=== PATIENT | female | born 1935 | race African-American/Black ===

== ENCOUNTER 2016-11-05 10:01 | Inpatient (IN) ==
[2016-10-30 09:11] LABS: Basophils % 0.7 % (0.0-0.8); Eosinophils # 0.2 10*3/uL (0.0-0.87); Hematocrit 36.1 VOL% (35.7-47.0); Hemoglobin 11.3 GM/DL (12.0-16.0); Immature Granulocytes % 0.4 %; Immature Granulocytes Absolute 0.01 #; Lymphocytes # 0.7 10*3/uL (1.4-4.0); Lymphocytes % 25.5 % (21.3-54.2); Mean Corpuscular HGB Conc 31.3 GM/DL (32-36); Mean Corpuscular Hemoglobin 28 PG (27-34); Mean Platelet Volume 9.5 FL (9.6-12.0); Monocytes # 0.2 10*3/uL (0.11-0.8); Monocytes % 8.6 % (1.7-12.7); Neutrophils # 1.6 10*3/uL (1.4-7.4); Neutrophils % 58.8 % (38.7-73.9); Platelet Count 200 T/CUMM (130-400); Red Blood Count 4.01 MC/CUMM (3.8-5.5); Red Cell Distribution Width 15.8 % (9.3-17.3); White Blood Count 2.7 T/CUMM (4-12)
[2016-10-30 09:21] LABS: Apearance,Urine CLEAR (Clear); Bilirubin,Urine Negative (Negative); Blood, Urine Negative (Negative); Glucose,Urine (UA) Negative (Negative); Ketones,Urine Negative (Negative); Mucus,Urine Occasional /LPF (Occasional); Nitrite,Urine Negative (Negative); PT Patient Result 10.6 SECS; Partial Thromboplastin Time 29.9 SECS (0-40); Protein,Urine Negative; Squamous Epithelial Cell,Urine Occasional /HPF (0-10); Urine Color Yellow (Yellow); Urine Specific Gravity 1.015 (1.001-1.035); Urine Urobilinogen < 2.0 EU/DL (0.2-1.0); WBC,Urine <1 /HPF (0-6)
--- NOTE | 2016-10-30 09:23 | EKG Report ---
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
[2016-10-30 09:50] LABS: Albumin 3.9 G/DL (3.4-5.0); Bilirubin,Total 0.4 MG/DL (0.2-1.0); Calcium 9.3 MG/DL (8.5-10.1); Osmolality,Calculated 285.1 MOS/KG (273-304); Total Protein 6.9 G/DL (6.4-8.3)
--- NOTE | 2016-10-30 11:26 | XRay Report ---
XR chest 2V Date: 10/30/2016 8:45 AM History: Respiratory preoperative evaluation Comparison: 03/30/2014 Technique: PA and lateral chest Findings: The heart is normal in size with uncoiling of the aorta. The lungs are clear without unremarkable mediastinum. Degenerative changes are noted with prior cholecystectomy. Impression: No acute cardiopulmonary pathology identified. PROCEDURE INTERPRETED AT [facility] DEPARTMENT OF RADIOLOGY Final Report Signed by: Dr. Mary Avendaño
[~2016-11-05 10:01] MED LIST: CLINDAMYCIN INJ 900 MG in PREMIX 1 EACH IV ONE; VANCOMYCIN INJ 1,000 MG in SODIUM CHLORIDE 0.9% 250 ML IV ONE
[2016-11-05] MEDS: LACTATED RINGERS 1,000 ML IV SCH ×2 (11:00→13:51)
[2016-11-05] MEDS ORDERED: CLINDAMYCIN INJ 50 ML IV ONE (11:06)
[2016-11-05] MEDS ORDERED: VANCOMYCIN 1,000 MG VIAL ONE (11:06)
[2016-11-05] MEDS ORDERED: DIAZEPAM 2 MG TABLET PO ONE (11:43)
[2016-11-05] MEDS ORDERED: PROPOFOL 200 MG/20 ML VIAL IV ONE (12:20)
[2016-11-05] MEDS ORDERED: KETOROLAC 30 MG/1 ML VIAL ONE (12:20)
[2016-11-05] MEDS ORDERED: hydrALAZINE 20 MG/1 ML VIAL ONE (12:20)
[2016-11-05] MEDS ORDERED: ONDANSETRON 4 MG/2 ML VIAL ONE (12:20)
[2016-11-05] MEDS ORDERED: EPINEPHrine 1 MG/ML VIAL ONE (12:25)
[2016-11-05] MEDS ORDERED: BUPIVACAINE 0.5% 50 ML VIAL ONE (12:25)
[2016-11-05] MEDS ORDERED: MORPHINE 10 MG/1 ML VIAL ONE (12:26)
[2016-11-05] MEDS ORDERED: methylPREDNISolone SOD SUC 125 MG/2 ML VIAL ONE (12:26)
[2016-11-05] MEDS ORDERED: TRANEXAMIC ACID 1,000 MG/10 ML VIAL IV ONE (13:13)
[2016-11-05] MEDS ORDERED: diphenhydrAMINE CAP 25 MG CAPSULE PO PRN (15:16)
[2016-11-05] MEDS ORDERED: hydroCHLOROthiazide 25 MG TABLET PO PRN (15:16)
[2016-11-05] MEDS ORDERED: MAGNESIUM HYDROXIDE SUSP 30 ML UDCUP PO PRN (15:16)
[2016-11-05] MEDS ORDERED: ONDANSETRON 4 MG/2 ML VIAL IV PRN ×2 (15:16→15:40)
[2016-11-05] MEDS ORDERED: TEMAZEPAM 7.5 MG CAPSULE PO PRN (15:16)
[2016-11-05] MEDS ORDERED: NALOXONE 0.4 MG/ML VIAL IV PRN (15:16)
[2016-11-05] MEDS ORDERED: MORPHINE PCA 30 MG/30 ML SYRINGE IV SCH (15:30)
[2016-11-05] MEDS ORDERED: LACTATED RINGERS 1,000 ML IV SCH (15:30)
[2016-11-05] MEDS ORDERED: fentaNYL 100 MCG/2 ML VIAL ONE (15:33)
[2016-11-05] MEDS ORDERED: MIDAZOLAM 2 MG/2 ML VIAL ONE (15:34)
[2016-11-05] MEDS ORDERED: SODIUM CHLORIDE 0.9% 250 ML IV ONE (15:34)
[2016-11-05] MEDS ORDERED: KETAMINE 500 MG/10 ML VIAL ONE (15:34)
[2016-11-05] MEDS ORDERED: ACETAMINOPHEN 1,000 MG/100 ML VIAL IV ONE (15:34)
[2016-11-05] MEDS ORDERED: LACTATED RINGERS 1,000 ML IV ONE (15:34)
[2016-11-05] MEDS ORDERED: HYDROmorphone 2 MG/1 ML VIAL IV PRN (15:40)
[2016-11-05 15:45] LABS: Apearance,Urine CLEAR (Clear); Bilirubin,Urine Negative (Negative); Blood, Urine Negative (Negative); Glucose,Urine (UA) Negative (Negative); Ketones,Urine Negative (Negative); Nitrite,Urine Negative (Negative); Protein,Urine Negative; Urine Color Colorless (Yellow); Urine Specific Gravity 1.003 (1.001-1.035); Urine Urobilinogen < 2.0 EU/DL (0.2-1.0); WBC,Urine <1 /HPF (0-6)
[2016-11-05] MEDS ORDERED: MORPHINE 10 MG/1 ML VIAL IV PRN (16:06)
--- NOTE | 2016-11-05 16:23 | XRay Report ---
Exam: XR hip 1V LT Date: 11/05/2016 3:18 PM Comparison: None Indication: Hip replacement Technique:[Portable AP left hip] Findings: Recent satisfactory left total hip replacement with postoperative findings. Vascular calcification is noted. Impression: Satisfactory left total hip replacement. PROCEDURE INTERPRETED AT [facility] DEPARTMENT OF RADIOLOGY Final Report Signed by: Dr. Mary Avendaño
[2016-11-05] MEDS: KETOROLAC 15 MG/1 ML VIAL IV SCH ×2 (17:40→23:08)
[2016-11-05] MEDS: CLINDAMYCIN INJ 900 MG in PREMIX 1 EACH IV SCH (18:51)
[2016-11-05] MEDS ORDERED: cloNIDine 0.1 MG TABLET PO SCH (21:00)
[2016-11-05] MEDS ORDERED: DORZOLAMIDE/TIMOLOL OPH SOLN 10 ML BOTTLE BOTH EYES SCH (21:00)
[2016-11-05] MEDS: DOCUSATE SODIUM 100 MG CAPSULE PO SCH ×2 (22:30)
[2016-11-05] MEDS: ACETAMINOPHEN 500 MG TABLET PO SCH (23:08)
[2016-11-06] MEDS: CLINDAMYCIN INJ 900 MG in PREMIX 1 EACH IV SCH (03:45)
[2016-11-06] MEDS: KETOROLAC 15 MG/1 ML VIAL IV SCH ×2 (03:49→10:55)
[2016-11-06 03:57] LABS: Hematocrit 31.4 VOL% (35.7-47.0); Immature Granulocytes % 0.3 %; Immature Granulocytes Absolute 0.02 #; Lymphocytes # 0.4 10*3/uL (1.4-4.0); Lymphocytes % 6.2 % (21.3-54.2); Mean Corpuscular HGB Conc 31.8 GM/DL (32-36); Mean Corpuscular Hemoglobin 28 PG (27-34); Mean Corpuscular Volume 88.2 FL (87-102); Mean Platelet Volume 9.9 FL (9.6-12.0); Monocytes # 0.2 10*3/uL (0.11-0.8); Monocytes % 2.3 % (1.7-12.7); Neutrophils # 6.3 10*3/uL (1.4-7.4); Neutrophils % 91.2 % (38.7-73.9); Platelet Count 196 T/CUMM (130-400); Red Blood Count 3.56 MC/CUMM (3.8-5.5); Red Cell Distribution Width 15.6 % (9.3-17.3); White Blood Count 6.9 T/CUMM (4-12)
[2016-11-06 04:26] LABS: Calcium 8.9 MG/DL (8.5-10.1); Osmolality,Calculated 288.8 MOS/KG (273-304)
[2016-11-06 04:32] LABS: Band Neutrophils 3 % (0-10); Lymphocytes 8 % (20-55); Myelocytes 1 %; Segmented Neutrophils 88 % (50-85); Total Cells Counted 100
[2016-11-06 04:33] LABS: Anisocytosis 1+; Platelet Estimate Normal
--- NOTE | 2016-11-06 08:03 | Orthopedic Progress Note ---
Assessment and Plan (1) Status post total hip replacement, left Status: Acute Assessment and plan: Hep-Lock IV, discontinue Lo, discontinue Hemovac today DVT prophylaxis Out of bed with therapy twice daily, weight-bear as tolerated with hip precautions Patient desires discharge to time minor rehab or [facility] bed later this week Current Visit: Yes Orthopedics - Subjective Interval history: Patient is currently comfortable, her pain is controlled. She states she is ready to begin physical therapy Her dressings clean and dry, she is neurovascular intact. Exam - Constitutional Vitals: Period Temp Pulse Resp BP Sys/Landers Pulse Ox Last 24 Hr 97.1 F-98.0 F 52-91 16-20 115-172/55-90 97-100 Results - Labs CBC & BMP: 11/06/16 03:16 11/06/16 03:16
[2016-11-06] MEDS: ACETAMINOPHEN 500 MG TABLET PO SCH ×2 (08:06→13:24)
[2016-11-06] MEDS ORDERED: TRAVOPROST 0.004% OPH SOLN 2.5 ML BOTTLE BOTH EYES SCH (09:00)
[2016-11-06] MEDS: MULTIVITAMIN (CENTRUM) TABLET PO SCH (10:49)
[2016-11-06] MEDS: ALLOPURINOL 300 MG TABLET PO SCH (10:50)
[2016-11-06] MEDS: ENOXAPARIN 40 MG/0.4 ML SYRINGE SUBCUT SCH (10:50)
[2016-11-06] MEDS: PRAVASTATIN 20 MG TABLET PO SCH (10:50)
[2016-11-06] MEDS: DOCUSATE SODIUM 100 MG CAPSULE PO SCH ×3 (10:53→21:21)
[2016-11-06] MEDS: DORZOLAMIDE/TIMOLOL OPH SOLN 10 ML BOTTLE BOTH EYES SCH ×2 (13:14→21:17)
[2016-11-06] MEDS ORDERED: ACETAMINOPHEN 325 MG TABLET PO PRN (15:17)
--- NOTE | 2016-11-06 15:41 | Anesthesia Post-Op ---
Anesthesia Post OP - Post Ansesthetic Evaluation Patient seen in post op: Yes Resp: within normal limits CV: within normal limits Mental: within normal limits Temp: within normal limits [id number]: within normal limits Nausea and Vomiting: within normal limits Pain: within normal limits
--- NOTE | 2016-11-06 17:36 | Hospitalist Consult Note ---
Assessment and Plan (1) Hypertension Status: Chronic Assessment and plan: Blood pressure a little low this evening Will decrease nightly clonidine to 0.1mg Current Visit: No Qualifiers: Hypertension type: essential hypertension Qualified Code(s): I10 - Essential (primary) hypertension (2) Gout Status: Chronic Assessment and plan: No acute flare Continue allopurinol Current Visit: No (3) Hyperlipidemia Status: Chronic Assessment and plan: Continue Pravastatin Current Visit: No (4) Status post total hip replacement, left Status: Acute Assessment and plan: Care per orthopedics Current Visit: Yes History of Present Illness - Data of Consult Consult date: 11/06/16 Requesting Physician: Raleigh Finn - Consult Narrative Reason for consult: medical management History of present illness: Ms. Choi is a 81 year old female with HTN, DLD and gout admitted for scheduled left hip replacement due to severe osteoarthritis. She had her right hip replaced April 2016. She is now s/p left hip replacement today by Dr. Finn. She appears to be doing well, talking on the phone. She denies chest pain, sob or dizziness. Her pain is currently controlled. Hospitalist consulted for medical management. CC: Raleigh Finn MD - Home Medications and Allergies Home Medications: Home Medications Medication Instructions Recorded Confirmed Type Allopurinol 300 mg PO DAILY 03/12/15 11/05/16 History Docusate Sodium Cap [Colace Cap] 200 mg PO BEDTIME 03/12/15 11/05/16 History Dorzolamide/Timolol Oph Soln 1 drop BOTH EYES BID 03/12/15 11/05/16 History [Cosopt] Multivit-Min/FA/Ca Carb/Vit K 1 tablet PO DAILY 03/12/15 11/05/16 History [Women's 50+ Daily Tablet] Pravastatin [Pravachol] 20 mg PO DAILY 03/12/15 11/05/16 History Travoprost 0.004% Oph Soln 1 drop BOTH EYES BEDTIME 03/12/15 11/06/16 History [Travatan Z] cloNIDine HCl [Clonidine HCl] 0.2 mg PO BEDTIME 03/12/15 11/05/16 History hydroCHLOROthiazide 25 mg PO DAILY PRN 03/12/15 11/05/16 History [Hydrochlorothiazide] Aspirin [Ecotrin] 81 mg PO DAILY 10/30/16 11/05/16 History Allergies/Adverse Reactions: Allergies Allergy/AdvReac Type Severity Reaction Status Date / Time cephalexin [From Keflex] Allergy Mild Unknown/Unable Verified 11/05/16 10:45 to obtain Medical,Surgical,& Family Hx - Medical History Cardio: History of: Hypertension Neurology: No history of: Seizures HEENT: History of: Eye Problem (valve in eyes to relieve pressure from glaucoma) , Dental Problems (dentures), Glaucoma Endocrine: History of: Dyslipidemia Rheumatology: History of;: Gout, Rheumatoid Arthritis Musculoskeletal: History of: Osteoporosis, Musculoskeletal Problems (oa) - Surgical History Neurologic Surgeries: Patient denies: Neurologic Surgery Abdominal Surgeries: Surgical HX of: Cholecystectomy, Colonoscopy Reproductive Surgeries: Surgical HX of;: Gynecologic Surgery (removal fibroids) Orthopedic Surgeries: Surgical HX of;: Total Hip Replacement (Rt 04/2016 left hip 11/07) - Family History Family History: Reports;: Family Cancer (father), Family Diabetes (father), Family Hypertension (patient) - Social History Smoking Status: Former smoker Frequency of Alcohol Use: None Type of Drug Use: None - Constitutional Constitutional: Absent: chills, fever(s) - EENT Eyes: Absent: blurry vision, loss of vision Ears: Absent: ear discharge, ear pain Nose, mouth and throat: Absent: dysphagia, neck pain - Cardiovascular Cardiovascular: Absent: chest pain at rest, chest pain with activity - Respiratory Respiratory: Absent: cough, wheezing - Gastrointestinal Gastrointestinal: Absent: abdominal pain, heartburn - Genitourinary Genitourinary: Absent: difficulty urinating, urinary frequency - Musculoskeletal Musculoskeletal: Absent: back pain, muscle cramps - Neurological Neurological: Absent: dizziness, focal weakness - Psychiatric Psychiatric: Absent: anxiety, depression - Endocrine Endocrine: Absent: cold intolerance, heat intolerance - Hematologic/Lymphatic Hematologic/Lymphatic: Absent: easy bleeding, easy bruising Exam - Constitutional Vitals: Period Temp Pulse Resp BP Sys/Landers Pulse Ox Last 24 Hr 97.4 F-98.7 F 60-91 16-20 99-151/51-82 97-100 General appearance: normal weight - Head Head exam: Present: normocephalic, atraumatic - Eye Eye exam: Present: EOMI Pupils: Present: RALPH - ENT ENT exam: Present: normal exam - Neck Neck exam: Present: normal inspection - Respiratory Respiratory exam: Present: clear to auscultation bilaterally. Absent: rhonchi, wheezes - Cardiovascular Cardiovascular exam: Present: regular rate and rhythm - GI/Abdominal GI/Abdominal exam: Present: normal bowel sounds, soft. Absent: tenderness - Extremities Exam Extremities exam: Present: normal inspection - Back Exam Back exam: Present: normal inspection - Neurological Exam Neurological exam: Present: alert, oriented X3 - Psychiatric Psychiatric exam: Present: normal affect, normal mood - Skin Skin exam: Present: warm, intact Results - Labs CBC & BMP: 11/06/16 03:16 11/06/16 03:16
[2016-11-06] MEDS: cloNIDine 0.1 MG TABLET PO SCH (21:16)
[2016-11-06] MEDS: TRAVOPROST 0.004% OPH SOLN 2.5 ML BOTTLE BOTH EYES SCH (21:19)
[2016-11-07 06:32] LABS: Basophils % 0.2 % (0.0-0.8); Eosinophils # 0.1 10*3/uL (0.0-0.87); Eosinophils % 1.2 % (0.00-10.9); Hematocrit 26.4 VOL% (35.7-47.0); Hemoglobin 8.5 GM/DL (12.0-16.0); Lymphocytes # 0.6 10*3/uL (1.4-4.0); Lymphocytes % 12.7 % (21.3-54.2); Mean Corpuscular HGB Conc 32.2 GM/DL (32-36); Mean Corpuscular Hemoglobin 29 PG (27-34); Mean Corpuscular Volume 89.5 FL (87-102); Mean Platelet Volume 10.2 FL (9.6-12.0); Monocytes # 0.4 10*3/uL (0.11-0.8); Monocytes % 9.1 % (1.7-12.7); Neutrophils # 3.7 10*3/uL (1.4-7.4); Neutrophils % 76.8 % (38.7-73.9); Platelet Count 169 T/CUMM (130-400); Red Blood Count 2.95 MC/CUMM (3.8-5.5); White Blood Count 4.8 T/CUMM (4-12)
--- NOTE | 2016-11-07 06:45 | XRay Report ---
Exam: XR chest 1V portable Date: 11/07/2016 4:00 AM Indication: COPD Comparison: 10/30/2016 Technical: AP portable Findings: Mild prominence the cardiac silhouette. Lateral marginal osteophytes present on thoracic spine with arthritic changes at the AC joint. No obvious consolidating infiltrate or effusion. Mediastinum is otherwise intact Impression: 1. Degenerative spondylosis change thoracic spine 2. Borderline cardiac enlargement without overt decompensation infiltrates or effusions. PROCEDURE INTERPRETED AT [facility] DEPARTMENT OF RADIOLOGY Final Report Signed by: Dr. Vega Carolina
[2016-11-07 07:13] LABS: Albumin 2.8 G/DL (3.4-5.0); Bilirubin,Total 0.6 MG/DL (0.2-1.0); Calcium 8.2 MG/DL (8.5-10.1); Magnesium 1.7 MG/DL (1.8-2.4); Phosphorous 2.3 MG/DL (2.5-4.9); Potassium 3.8 MMOL/L (3.5-5.1); Total Protein 5.3 G/DL (6.4-8.3)
--- NOTE | 2016-11-07 07:21 | Orthopedic Progress Note ---
Assessment and Plan (1) Status post total hip replacement, left Status: Acute Assessment and plan: DVT prophylaxis Continue therapy twice daily Plan to discharge to swing bed or [facility] tomorrow Current Visit: Yes Orthopedics - Subjective Interval history: Patient complains of being sleepy. She was able to ambulate into the hallway yesterday. Pain is controlled. On exam, her dressings clean and dry, she is neurovascularly intact. Has mild swelling in the left thigh. Exam - Constitutional Vitals: Period Temp Pulse Resp BP Sys/Landers Pulse Ox Last 24 Hr 97.5 F-100.6 F 62-77 18-20 99-144/51-64 93-99 Results - Labs CBC & BMP: 11/07/16 06:05 11/07/16 06:05
[2016-11-07] MEDS: DOCUSATE SODIUM 100 MG CAPSULE PO SCH ×3 (09:06→21:02)
[2016-11-07] MEDS: MULTIVITAMIN (CENTRUM) TABLET PO SCH (09:07)
[2016-11-07] MEDS: ENOXAPARIN 40 MG/0.4 ML SYRINGE SUBCUT SCH (09:07)
[2016-11-07] MEDS: ALLOPURINOL 300 MG TABLET PO SCH (09:07)
[2016-11-07] MEDS: PRAVASTATIN 20 MG TABLET PO SCH (09:07)
[2016-11-07] MEDS: DORZOLAMIDE/TIMOLOL OPH SOLN 10 ML BOTTLE BOTH EYES SCH ×2 (09:08→21:03)
--- NOTE | 2016-11-07 17:57 | Hospitalist Progress Note ---
Assessment and Plan (1) Hypertension Status: Chronic Assessment and plan: The patient has appropriate control of blood pressure on current regimen. The patient is progressing with therapy as expected. Identified no new complications today. Current Visit: No Qualifiers: Hypertension type: essential hypertension Qualified Code(s): I10 - Essential (primary) hypertension (2) S/P total hip arthroplasty Status: Acute Current Visit: No Qualifiers: Laterality: right Qualified Code(s): Z96.641 - Presence of right artificial hip joint Hospitalist: Subjective Interval history: This is the second postoperative day for Mrs. Choi had left total hip arthroplasty on Saturday. The patient has history of hypertension. The patient is requiring some oral narcotic pain medication and that she is progressing appropriately with physical therapy. I coordinated with case filler today concerning [facility]. Exam - Constitutional Vitals: Period Temp Pulse Resp BP Sys/Landers Pulse Ox Last 24 Hr 98.6 F-100.6 F 70-77 18-20 125-144/60-69 93-98 General appearance: mild distress - Respiratory Respiratory exam: Present: clear to auscultation bilaterally - Cardiovascular Cardiovascular exam: Present: regular rate and rhythm - GI/Abdominal GI/Abdominal exam: Present: normal bowel sounds Results - Labs CBC & BMP: 11/07/16 06:05 11/07/16 06:05 Lab Results: I have reviewed the past 24 hour labs
[2016-11-07] MEDS: cloNIDine 0.1 MG TABLET PO SCH (21:02)
[2016-11-07] MEDS: TRAVOPROST 0.004% OPH SOLN 2.5 ML BOTTLE BOTH EYES SCH (21:03)
[2016-11-08 05:08] LABS: Basophils % 0.3 % (0.0-0.8); Eosinophils # 0.1 10*3/uL (0.0-0.87); Eosinophils % 3.4 % (0.00-10.9); Hematocrit 25.6 VOL% (35.7-47.0); Hemoglobin 8.2 GM/DL (12.0-16.0); Immature Granulocytes % 0.5 %; Immature Granulocytes Absolute 0.02 #; Lymphocytes # 0.7 10*3/uL (1.4-4.0); Lymphocytes % 17.4 % (21.3-54.2); Mean Corpuscular Hemoglobin 28 PG (27-34); Mean Corpuscular Volume 88.6 FL (87-102); Mean Platelet Volume 9.9 FL (9.6-12.0); Monocytes # 0.4 10*3/uL (0.11-0.8); Monocytes % 9.8 % (1.7-12.7); Neutrophils # 2.6 10*3/uL (1.4-7.4); Neutrophils % 68.6 % (38.7-73.9); Platelet Count 165 T/CUMM (130-400); Red Blood Count 2.89 MC/CUMM (3.8-5.5); Red Cell Distribution Width 15.9 % (9.3-17.3); White Blood Count 3.8 T/CUMM (4-12)
--- NOTE | 2016-11-08 07:45 | Orthopedic Progress Note ---
Assessment and Plan (1) Status post total hip replacement, left Status: Acute Assessment and plan: DVT prophylaxis Continue therapy twice daily Plan to discharge to swing bed when bed is available Current Visit: Yes Orthopedics - Subjective Interval history: Patient's pain is improving, her hip feels better than yesterday. On exam her dressings clean and dry, she is neurovascularly intact. Exam - Constitutional Vitals: Period Temp Pulse Resp BP Sys/Landers Pulse Ox Last 24 Hr 97.2 F-99.4 F 69-73 17-20 122-148/59-69 93-98 Results - Labs CBC & BMP: 11/08/16 04:50 11/07/16 06:05
--- NOTE | 2016-11-08 07:53 | Discharge Summary ---
Hospital Course - Hospital Course Hospital Course: 81-year-old female underwent total hip replacement was admitted for postoperatively. She received routine antibiotics and thromboprophylaxis. She seen by physical therapy. Due to her social situation and difficulty mobilizing , she desired to be discharged to swing bed. Once a bed was available, she was subsequent discharge. Time of discharge her wounds clean and dry she is neurovascularly intact. Diagnosis - Discharge Diagnosis (1) Status post total hip replacement, left Status: Acute Specialty Discharge - Follow Up or Referrals Follow up with: Raleigh Finn MD [Physician] - 11/28/16 10:40 am (3 weeks) Discharge Plan - Discharge Data Disposition: Disch/Xfer-Ip Rehab Fac Condition at Discharge: Stable Discharge Diet: advance to your usual diet Activity: ambulate only with your walker Hygiene: may shower Weight Bearing at Discharge: weight bear as tolerated Driving: not until seen by doctor Contact your physician if you experience:: fever over 101, Difficulty voiding, Redness or swelling, Nausea/Vomiting, Shortness of breath, Bleeding, pain uncontrolled by pain medications Wound / Dressing Care Instructions: daily dressing change. OK to shower, no tub soaks. patience out 11/19/2016 - Discharge Medications New Acetaminophen Tab [Tylenol Tab] 650 mg PO Q6H PRN #0 tablet PRN Reason: Pain Mild (1-3) HYDROcodone/ACETAMIN 7.5-325 [[place] 7.5-325] 1 - 2 tablet PO Q4H PRN #60 tablet PRN Reason: Pain Moderate (4-7) Continue Travoprost 0.004% Oph Soln [Travatan Z] 1 drop BOTH EYES BEDTIME Dorzolamide/Timolol Oph Soln [Cosopt] 1 drop BOTH EYES BID cloNIDine HCl [Clonidine HCl] 0.2 mg PO BEDTIME Allopurinol 300 mg PO DAILY Docusate Sodium Cap [Colace Cap] 200 mg PO BEDTIME Pravastatin [Pravachol] 20 mg PO DAILY hydroCHLOROthiazide [Hydrochlorothiazide] 25 mg PO DAILY PRN PRN Reason: Edema Multivit-Min/FA/Ca Carb/Vit K [Women's 50+ Daily Tablet] 1 tablet PO DAILY Discontinued Aspirin [Ecotrin] 81 mg PO DAILY - Follow Up or Referral Follow Up: Raleigh Finn MD [Physician] - 11/28/16 10:40 am (3 weeks) - Forms/Instructions Instructions: Total Hip Replacement (DC) Additional Discharge Instructions: WBAT, hip precautions Exam - Constitutional Vitals: Period Temp Pulse Resp BP Sys/Landers Pulse Ox Last 24 Hr 97.2 F-99.4 F 69-73 17-20 122-148/59-69 93-98 Discharge Results Labs on day of discharge: Labs from last 24 hours 11/08/16 04:50 WBC 3.8 L RBC 2.89 L Hgb 8.2 L Hct 25.6 L MCV 88.6 MCH 28 MCHC 32.0 RDW 15.9 Plt Count 165 MPV 9.9 Neut % (Auto) 68.6 Lymph % (Auto) 17.4 L [place] % (Auto) 9.8 Eos % (Auto) 3.4 Baso % (Auto) 0.3 Neut # (Auto) 2.6 Lymph # (Auto) 0.7 L [place] # (Auto) 0.4 Eos # (Auto) 0.1 Baso # (Auto) 0.0 Immature Gran % 0.5 Nucleated RBC % 0.0 Immature Gran # 0.02 Nucleated RBCs # 0.00 DS: Provider Date of admission: 11/05/16 10:01 Primary care physician: Pérez Parr MD Attending physician on admission: Raleigh Finn MD Consults: 11/05/16 15:16 Consult to Case Mgmt/Social Srvs [CONS] Routine Reason for Case Mgmt/Social Srvs: Rehab Home Health Equipment Consult Comment: Bedside Commode, CPM, Walker Consult to Occupational Therapy [CONS] Routine Reason for Occupational Therapy: Evaluate and Treat Consult Comment: ADL's Consult to Physical Therapy [CONS] Routine Reason for Physical Therapy: Evaluate and Treat Gait Training Start Therapy: Tomorrow Consult Comment: hip precautions 11/05/16 15:20 Consult to Physician [CONS] Routine Comment: hospitalist for post-op medical mgt Consulting Provider: Consulting Provider Notified: Yes When should Consulting Provider be notified: Now Person Notified: sanchez ennis called Date Notified: 11/06/16 Time Notified: 08:09 11/05/16 17:35 Consult to Pastoral Services [CONS] Routine Comment: Pastoral Screen: Request Environmental Marketing Representative Visit Pastoral Screen Source of Request: Patient 11/07/16 08:04 Consult to Outpatient Therapy [CONS] Routine Reason for Outpatient Therapy: Physical Therapy Consult Comment: Set Pt up f/OP Rehab @ [facility] after she completes inpatient @ [facility] Discharging clinician: Raleigh Finn MD
[2016-11-08 07:59] VITALS: BP 141/72
[2016-11-08] MEDS ORDERED: BISACODYL 10 MG SUPP RECTAL ONE (08:44)
[2016-11-08] MEDS: PRAVASTATIN 20 MG TABLET PO SCH (09:46)
[2016-11-08] MEDS: DORZOLAMIDE/TIMOLOL OPH SOLN 10 ML BOTTLE BOTH EYES SCH (09:46)
[2016-11-08] MEDS: DOCUSATE SODIUM 100 MG CAPSULE PO SCH (09:46)
[2016-11-08] MEDS: MULTIVITAMIN (CENTRUM) TABLET PO SCH (09:46)
[2016-11-08] MEDS: ALLOPURINOL 300 MG TABLET PO SCH (09:46)
[2016-11-08] MEDS: ENOXAPARIN 40 MG/0.4 ML SYRINGE SUBCUT SCH (09:48)
== END 2016-11-08 11:05 | DRG 470 ==
LOC: N.SDSINP 10:01 → N.3E 16:41
PROVIDERS: ADMIT Orthopaedic Surgery; ATTEND Orthopaedic Surgery